=== PATIENT | female | born 1960 | race Caucasian/White ===

== ENCOUNTER → 2016-05-24 | Outpatient (CLI) | payer BC, OTHER ==
[2016-05-24 15:09] LABS: FREE T4 (FREE THYROXINE) 1.07 ng/dL (0.93-1.71)
== END ==
LOC: LAB 13:01
PROVIDERS: ATTEND Nurse Practitioner Family
DX: E03.9 Hypothyroidism, unspecified (principal)
CPT/HCPCS: 36415; 84439; 84443

== ENCOUNTER → 2016-09-29 | Outpatient (CLI) | payer BC, OTHER ==
--- NOTE | 2016-09-29 18:39 | DI ---
LUMBAR SPINE SERIES, 09/29/2016 2:15 PM: Clinical History: Low back pain. Previous Exam: None at this facility. Spine views are submitted. The vertebral bodies are of normal height and size. Mild to moderate L4-5 disc space narrowing is present with severe narrowing at L5-S1. The remaining lumbar disc spaces are normal in height. Arthritic changes are present bilaterally in the L3-4 through L5-S1 apophyseal join ts. Posterior alignment is normal and there is no instability noted with flexion and extension maneuv ers. The pedicles in both SI joints are normal. Readin. There is chronic disc space narrowing at L4-5 and L5-S1 with degenerative arthritic changes in th e apophyseal joints bilaterally between L3-4 through L5-S1. 2. Posterior alignment is normal and there is no instability noted with flexion and extension maneuv ers.
== END ==
LOC: ORTHO 14:18
PROVIDERS: ATTEND Physician Assistant
DX: M47.26 Other spondylosis with radiculopathy, lumbar region (principal); M70.62 Trochanteric bursitis, left hip; M48.06 Spinal stenosis, lumbar region
CPT/HCPCS: 72110

== ENCOUNTER → 2016-10-05 | Outpatient (CLI) | payer BC, OTHER ==
--- NOTE | 2016-10-05 12:43 | DI ---
MRI LUMBAR SPINE W/O CN,10/05/2016 10:21 AM: Clinical History: Lumbar radiculopathy. Previous Exam: November 09, 2005 Findings: Multiplanar MR images are obtained through the lumbar spine without contrast. Bony alignment is anatomic and no fractures are seen. There is some mild degenerative endplate changes and subchondral edema at L5/S1. The spinal cord descends normally with a normal conus at the L1 level. The paraspinal musculature is unremarkable. There is significant facet hypertrophy throughout which is worst at the lower lumbar spine. There is a 13 mm cystic mass within the left kidney. The major vascular flow voids are unremarkable. The paraspinal musculature is unremarkable. Individual intervertebral disc spaces: L1/2: No significant stenosis. L2/3 colonoscopies stenosis. L3/4: There is disc desiccation and a broad-based disc bulge with significant facet and ligamentum fl avum hypertrophy contributing to mild bilateral neural foraminal narrowing. L4/5: There is disc desiccation, annular fissuring and a broad-based disc bulge with some mild facet and ligamentum flavum hypertrophy contributing to mild bilateral neural foraminal narrowing. L5/S1: There has been interval decrease in intervertebral disc height at this level and a new central disc protrusion measuring 6.5 mm into the central canal contributing to mild central canal stenosis with stable bilateral moderate neuroforaminal narrowing. Impression: 1. Worsening degenerative disc disease with a prominent 6.5 mm central disc protrusion at L5/S1 contr ibuting to mild central canal stenosis.
== END ==
LOC: MRI 10:02
PROVIDERS: ATTEND Physician Assistant
DX: M54.16 Radiculopathy, lumbar region (principal); M51.17 Intervertebral disc disorders with radiculopathy, lumbosacral region
CPT/HCPCS: 72148

== ENCOUNTER 2016-10-08 15:55 | Emergency (ER) | payer BC, OTHER ==
[2016-10-08 16:15] VITALS: RESP 16; TEMP 98.2
[2016-10-08] MEDS ORDERED: Magnesium Sulfate 2gm (Premix) 2 GM in Premix 1 BAG IV ONE (16:20)
[2016-10-08] MEDS ORDERED: Prochlorperazine Edisylate Inj 10mg/2ml vial IVP ONE (16:20)
[2016-10-08] MEDS ORDERED: diphenhydrAMINE 50 MG/1 ML VIAL IVP ONE (16:20)
[2016-10-08] MEDS ORDERED: KETOROLAC 15 MG/1 ML VIAL IVP ONE (16:20)
[2016-10-08] MEDS ORDERED: DEXAMETHASONE PF 10 MG/1 ML VIAL IV ONE (16:20)
[2016-10-08] MEDS ORDERED: Sodium Chloride 0.9% 1,000 ML PRIMARY IV ONE (16:20)
--- NOTE | 2016-10-08 16:27 | PDOC ---
Headache HPI - General Chief Complaint: Headache Stated Complaint: SUDDEN ONSET HEADACHE Date Seen by Provider: 10/08/16 Time Seen by Provider: 16:22 Source: POSITIVE: Patient, Spouse Exam Limitations: POSITIVE: No limitations Nurse's Notes Reviewed & Considered: Yes - History of Present Illness Initial Comments: Very pleasant 56-year-old complaining of worst headache of her life. Patient developed significant headache at approximately 1500 hrs. today after intercourse and intense orgasm. She has a history of migraine headaches but this headache is worse than anything she's had in the past, and he has atypical for her previous headaches. She took 2 baby aspirin and came to the emergency room for evaluation. Her headache has improved at this time. She denies any sore throat, no chest pain or shortness of breath, no cough, no nausea vomiting or diarrhea, no abdominal pain, no hematuria or dysuria, no rashes, no myalgias or arthralgias. She is alert and oriented [address] and time. Has been no loss of consciousness. She denies any focal or lateralizing neurological signs. Body Location Affected: REPORTS: Head Timing: REPORTS: Abrupt Duration: 1 hour Severity: Severe Quality: REPORTS: "Pain", Stabbing, Throbbing Context: REPORTS: Other (Post coital) Associated Symptoms: REPORTS: Problems with Vision, Sensitivity to Light ( Photophobia has resolved) Any Prior Injuries Related to Current Complaint?: No - Patient Home Medications Home Medications: Home Medications Fluticasone Propionate [Flonase Allergy Relief] 2 spr MARIBEL BID #3 spr 01/08/16 Clobetasol Propionate/Emoll [Clobetasol Emollient 0.05% Crm] 45 gm TOPICAL BID # 1 tube 06/24/16 Methylprednisolone [Medrol] 4 mg PO BID #1 packet 06/24/16 Thyroid,Pork [[place] Thyroid] 1 tab PO QD #90 tab 08/02/16 Diclofenac Sodium 75 mg PO BID #60 tab 09/29/16 - Patient Allergies Allergies/Adverse Reactions: Allergies Allergy/AdvReac Type Severity Reaction Status Date / Time Latex, Natural Rubber Allergy Unverified 10/01/16 10:12 Sulfa (Sulfonamide Allergy FAMILY Unverified 06/24/16 08:57 Antibiotics) HISTORY Past Medical History - heen HEENT History: Chipped or Loose Teeth Additional HEENT History: TOP REAR RIGHT BROKEN TOOTH Cardiovascular History: Denies History Respiratory History: Denies History Gastrointestinal History:  Additional Gastrointestinal History: BLOOD IN STOOL Genitourinary History: Denies History Endocrine History: Hypothyroidism Musculoskeletal History: Denies History Neurological History: Denies History Blood Disorders: Denies History Psychiatric History: Denies History History of Sexually Transmitted Diseases: No Cancer History: Denies History In Past Year Been Physically Harmed or Verbally Threatened: No History of MDRO: No History of Other Communicable Diseases: No Tobacco Use: Unknown If Ever Smoked Alcohol Use: Occasionally Type of alcohol normally used: Hard Liquor How much alcohol do you normally drink a day?: 2-3 DRINKS PER NIGHT Substance Use Type: None Previous Surgical History: Yes Type / Date of Surgery: C SECTION X 3/ COLONOSCOPY/ BILAT KNEE SCOPE, ACL Anesthesia Reactions: No Malignant Hyperthermia: No ROS - Limitations ROS Limitations: No Limitations Constitution: REPORTS: Denies Symptoms Cardiovascular: REPORTS: Denies Cardiac Symptoms Respiratory: REPORTS: Denies Resp Symptoms Neurological: REPORTS: Headache Gastrointestinal: REPORTS: Denies GI Symptoms Endocrine: REPORTS: Denies Symptoms Musculoskeletal: REPORTS: Denies MS Symptoms Genitourinary: REPORTS: Denies Symptoms Eyes: REPORTS: Other (Photophobia which has resolved) ENT: REPORTS: Denies Symptoms Skin: REPORTS: Denies Skin Symptoms Lympathic: REPORTS: Denies Lympathic Symptoms Immunologic: POSITIVE: Denies Symptoms Psychiatric: POSITIVE: Denies Psych Symptoms Headache Exam - HEENT Head / Face: POSITIVE: Atraumatic, Normal Inspection, No Facial Swelling Eyes: POSITIVE: Inspection Normal, PERRL, EOM's Intact, Eyelids Uninjured, Conjunctivae Uninjured, No Nystagmus, No Globe Trauma, Sclera Normal Ears: POSITIVE: Ears Normal Inspection, Auricle Normal Nose: POSITIVE: Inspection Normal, No Apparent Trauma, Nares Normal, No CSF Leak Oropharynx: POSITIVE: External Inspection Nml, Pharynx Inspect. Nml, Airway Intact, Voice Normal, Moist Mucous Membranes, No Oral Injury, Lips Normal, Gums Normal, No Drooling, No Thrush Dental: POSITIVE: No Dental Injury - Pupil Size Pupil Size: 4 mm: Bilateral - Neck Neck: POSITIVE: Normal Inspection, Supple - Respiratory / CVS Respiratory / CVS: POSITIVE: Chest Non-Tender, No Respiratory Distress, Heart Sounds Normal, Regular Rate/Rhythm, Breath Sounds Normal - Abdomen Abdomen: Soft: (All Quadrants), Normal Bowel Sounds: (All Quadrants), Denies Tenderness: (All Quadrants), No Splenomegaly: (All Quadrants), No Hepatomegaly: (All Quadrants), No Guarding: (All Quadrants), No Rebound: (All Quadrants), No Palpable Pulse: (All Quadrants), No Palpabale Mass: (All Quadrants), No Distention: (All Quadrants), No Rigidity: (All Quadrants) - Skin Skin: POSITIVE: Intact, Normal Palpation - Extremities Extremity: Non-Tender: (All Extremities), Normal ROM: (All Extremities), Normal Inspection: (All Extremities), Pelvis Stable: (All Extremities) - Neuro / Psych Higher Functions: POSITIVE: Alert, Oriented x3, Normal Speech, Mood Appropriate , Affect Appropriate Cranial Nerves: POSITIVE: Normal As Tested, No Evidence of Acute CVA (No lateralizing signs) Cerebellar: POSITIVE: Normal As Tested (No ataxia or lateralizing signs) Sensorimotor: POSITIVE: No Motor Deficits, No Sensory Deficits, Reflexes Normal Reflexes: Patellar (R): 2+, Patellar (L): 2+, Radial (R): 3+, Radial (L): 3+ Headache Progress - Results Reviewed by me Xrays/CTs/US Reviewed by me: Yes Discussed with Radiologist: Yes Lab Results Reviewed: Yes Lab Results:: Laboratory Results 10/08/16 Range/Units 16:20 WBC 6.38 (4.8-10.8) 10^3/uL RBC 4.85 (4.20-5.40) 10^6/uL Hgb 14.6 (12.0-16.0) g/dL Hct 43.8 (37.0-47.0) % MCV 90.3 (81-99) FL MCH 30.1 (27-31) PG MCHC 33.3 (33-37) g/dL RDW Std Deviation 43.3 (39-50) fL RDW Coeff of Hiro 13.3 (11.5-14.5) % Plt Count 166 (140-350) 10*3/uL MPV 10.7 (7.4-12.2) FL Immature Gran % (Auto) 0.3 (0-5) % Neut % (Auto) 50.7 (50-80) % Lymph % (Auto) 33.1 (10-50) % [place] % (Auto) 12.2 (5-15) % Eos % (Auto) 2.8 (0-8) % Baso % (Auto) 0.9 (0-1) % Immature Gran # (Auto) 0.02 10*3/UL Neut # (Auto) 3.23 10*3/UL Lymph # (Auto) 2.11 10*3/uL [place] # (Auto) 0.78 (0.3-0.8) 10*3/UL Eos # (Auto) 0.18 10*3/UL Baso # (Auto) 0.06 10*3/UL WBC Morphology Comment See comments (NORM) Plt Morphology Comment Normal morphology (NORM) RBC Morph Comment Normal morphology (NORM) Sodium 138 (135-145) meq/L Potassium 3.8 (3.8-5.2) meq/L Chloride 107 (98-112) meq/L Carbon Dioxide 22 L (23-33) meq/L Anion Gap 9 (5-20) BUN 23 H (7-22) mg/dL Creatinine 0.8 (0.50-1.20) mg/dL Estimated GFR > 60 (>60 ml/min/1.73m(2)) BUN/Creatinine Ratio 28.75 H (6-20) Glucose 82 (78-110) mg/dL Calculated Osmolality 288.0 (267-292) mOsm/kg Calcium 8.9 (8.7-10.7) mg/dL Magnesium 1.9 (1.6-2.4) mg/dL Total Bilirubin 0.9 (0.3-1.2) mg/dL AST 25 (8-39) IU/L ALT 21 (9-52) IU/L Alkaline Phosphatase 71 (38-126) IU/L C-Reactive Protein 1.2 H (0.0-0.9) mg/dL Total Protein 7.0 (6.1-8.0) g/dL Albumin 4.0 (3.5-4.8) g/dL Globulin 3.0 (2.50-4.10) g/dL Albumin/Globulin Ratio 1.30 (1.3-2.0) mg/g TSH 9.12 H (0.2700-4.2000) uIU/mL Free T4 0.69 L (0.93-1.71) ng/dL - Patient's Progress Pain Medication Addressed: POSITIVE: Yes Re-Examine Time:: 18:09 Status: POSITIVE: Improved MDM / ED Course: Patient was evaluated, IV started, blood drawn and sent to the lab for studies, radiographic examinations were obtained. Patient received a liter of normal saline, dexamethasone, Toradol, Benadryl, Compazine, and magnesium sulfate. Her headache significantly improved. Findings: CT scan of her head shows no acute intracranial abnormality, comprehensive metabolic panels within normal limits, CBC is within normal limits. Assessment: Headache. Plan: Discharge home follow up with primary care physician, return to emergency room if return of symptoms. - Consult Counseled: POSITIVE: Patient, Family, RE: Lab Results, RE: Radiology Results, RE : DX, RE: Need for F/U Patient Care Time - Estimated PCT Patient Care Time (In Minutes): 45 Vital Signs - Recent Vital Signs Vital Signs: Vital Signs (Last 8 hours) Temp Pulse Resp BP Pulse Ox 10/08/16 15:55 98.2 F 66 16 120/84 96 - VS Reviewed Vital Signs Reviewed: Yes Discharge Clinical Impression: Migraine Discharge Disposition: Discharged to Home Condition: Stable Patient Instructions Given at Discharge: Migraine Headache (ED) Follow Up With: ANTHONY DARLING FNP [Primary Care Provider] -
[2016-10-08 16:42] LABS: BLOOD UREA NITROGEN 23 mg/dL (7-22); BUN/CREATININE RATIO 28.75 (6-20); C-REACTIVE PROTEIN 1.2 mg/dL (0.0-0.9); CALCIUM 8.9 mg/dL (8.7-10.7); EST GLOMERULAR FILTRATION > 60 (>60 ml/min/1.73m(2)); MAGNESIUM 1.9 mg/dL (1.6-2.4)
[2016-10-08 16:56] LABS: FREE T4 (FREE THYROXINE) 0.69 ng/dL (0.93-1.71)
[2016-10-08 17:09] LABS: HEMATOCRIT 43.8 % (37.0-47.0); HEMOGLOBIN 14.6 g/dL (12.0-16.0); MEAN CORPUSCULAR HEMOGLOBIN 30.1 PG (27-31); MEAN CORPUSCULAR VOLUME 90.3 FL (81-99); RED BLOOD COUNT 4.85 10^6/uL (4.20-5.40)
[2016-10-08 17:10] LABS: BASOPHILS # (AUTO) 0.06 10*3/UL; BASOPHILS % (AUTO) 0.9 % (0-1); EOSINOPHILS # (AUTO) 0.18 10*3/UL; EOSINOPHILS % (AUTO) 2.8 % (0-8); LYMPHOCYTES # (AUTO) 2.11 10*3/uL; MEAN CORPUSCULAR HGB CONC 33.3 g/dL (33-37); MEAN PLATELET VOLUME 10.7 FL (7.4-12.2); MONOCYTES # (AUTO) 0.78 10*3/UL (0.3-0.8); MONOCYTES % (AUTO) 12.2 % (5-15); NEUTROPHILS # (AUTO) 3.23 10*3/UL; NEUTROPHILS % (AUTO) 50.7 % (50-80); PLATELET MORPHOLOGY COMMENT NORMAL MORPHOLOGY (NORM); RBC MORPHOLOGY COMMENT NORMAL MORPHOLOGY (NORM)
[2016-10-08 17:11] LABS: WBC MORPHOLOGY COMMENT SEE COMMENTS (NORM)
--- NOTE | 2016-10-08 17:46 | DI ---
CT HEAD W/O CONTRAST,10/08/2016 4:20 PM: Clinical History: Worst headache of life. Previous Exam: None at this facility. Findings: Multiple helically acquired CT images are obtained through the brain without contrast, and demonstrat e normal, symmetric ventricles and other CSF containing spaces. There is no mass, hemorrhage or midli ne shift. The surrounding soft tissue and osseous structures are unremarkable. Impression: Normal CT head
== END 2016-10-08 18:18 | disposition home or self-care (01) ==
LOC: ER 15:55
DX: G43.009 Migraine without aura, not intractable, without status migrainosus (principal); H53.9 Unspecified visual disturbance
CPT/HCPCS: 70450; 80053; 83735; 84439; 84443; 85025; 86140; 96361; 96365; 96375; 99283 ×2; J0780; J1100; J1200; J1885; J3475; J7030

== ENCOUNTER 2016-10-13 07:27 | Day surgery (SDC) | payer BC, OTHER ==
[2016-10-13 07:53] VITALS: RESP 18
--- NOTE | 2016-10-13 08:11 | GEN.OPNOTE ---
Transforaminal PAULO Procedure: Transforaminal Epidural Steriod Injection Procedure Code - Neurosurgery: 54941 : Lumbar Transforaminal Epidural Preoperative Diagnosis: Lumbar Degenerative Disc Disease Postoperative Diagnosis: same -: Consent: Rationale for procedure, nature of procedure, possible risks and benefits were discussed with the patient. Risks including allergic reaction to medications, known effects of steroid medications including transient elevation in blood sugar with aggravation of pre-existing diabetes and remote risk of aseptic necrosis of the hip. Pain at the injection site, inadvertent dural puncture with resultant in CSF leak and headache possibly requiring further treatment. Infection or bleeding with potential risk of neurologic injury with weakness, paralysis or were all reviewed with the patient who wished to proceed. Anesthesia, sedation: No intravenous access or sedation was used. Physiologic monitoring of pulse and oxygen saturation was utilized. Procedure: The patient was placed prone on the operating room table, prepped with Chloraprep and sterilely draped. The skin was anesthetized with 1% Buffered Xylocaine. Under fluoroscopic control a 22-gauge Touhy needle was advanced into the area of the Kambin's triangle at the L5S1 level. Imaging confirmation of needle placement in the posterior, inferior and lateral quadrant of the foramen was obtained. Omnipaque was injected under real-time fluoroscopy demonstrating and epidurogram. Following this 2 ml of a mixture of kenalog(40mg/ml) and 1% ropivacaine was injected. AP and lateral images of the final needle placement was obtained. The needle was removed and the patient returned to the post procedure recovery room where they were monitored for any side effects. Pain assessment: Preprocedure pain []/10, post procedure pain []/10. Discharge instructions: Patient was given a pain log to be filled out and returned. A delayed response to the steroids of 2-5 days was discussed.
[2016-10-13 08:22] VITALS: TEMP 96.9
[2016-10-13] MEDS ORDERED: BUPivacaine Inj 0.25% PF - 10ml vial IV ONE (10:12)
[2016-10-13] MEDS ORDERED: Iopamidol Inj 61% 50 ML VIAL INTRATHEC ONE (10:12)
[2016-10-13] MEDS ORDERED: TRIAMCINOLONE ACETONIDE 40 MG/1 ML IAC ONE (10:12)
== END 2016-10-13 08:13 | disposition home or self-care (01) ==
LOC: SDSC 07:27
PROVIDERS: ATTEND Pain Medicine Interventional Pain Medicine
DX: M51.36 Other intervertebral disc degeneration, lumbar region (principal)
CPT/HCPCS: 64483; 76000; J3301; S0020